=== PATIENT | male | born 1935 | race Caucasian/White ===

== ENCOUNTER → 2018-05-14 | Day surgery (SDC) | payer OTHER, MEDICARE ==
[~2018-05-14] MED LIST: CIPROFLOXACIN 55 ML OS; CLEOCIN HCL300 M1 PO; COUMADIN 3 MG TA3 MG PO; DOCUSATE SODIU100 MG PO; LISINOPRIL20 MG PO; NORVASC 5MG TAB5 MG PO; PRADAXA150 M1 PO; PRADAXA150 MG PO; PRAVACHOL10 MG PO; TYLENOL TAB 32325 MG PO; TYLENOL WITH C1 EACH PO; VOLTAREN 5 ML5 ML OS; ZOFRAN4 MG PO
--- NOTE | 2018-05-14 08:17 | Operative Report ---
Operative/Inv Procedure Report Surgery Date: 05/14/18 Name of Procedure: Right carpal tunnel release Pre-Operative Diagnosis: Right carpal tunnel syndrome Post-Operative Diagnosis: Same Estimated Blood Loss: none Surgeon/Metal Treater: Michael Mercedes MD Anesthesia: moderate sedation IV Fluids: See anesthesia record Implants: None Drains: None Specimens: None Tourniquet: 13 minutes Complications: None Condition: Stable Operative Indication: Patient is an 83-year-old male with documented carpal tunnel syndrome of the right wrist and hand. He failed conservative treatment with cortisone injections and was indicated for surgery. The risks and benefits were discussed with the patient in detail. Operative/Procedure Note Note: Once informed consent was obtained and the correct limb was identified the patient brought up room placed on table in supine position. After administration of sedation, local anesthesia was placed around the planned incision site with 0.5% plain Marcaine and 1% plain lidocaine. The right upper exam and had a tourniquet placed and was prepped and draped in the usual sterile fashion. To begin the procedure the tourniquet was inflated to 250 mmHg. Incision was made along the palm in line with the fourth ray radial border. Sharp dissection was carried out through the skin section as tissue. The deep palmar fascia was incised. A freer elevator was placed underneath the transverse carpal ligament and the transverse carpal ligament was incised sharply with a #15 blade with care to avoid nerves and tendons. The transection of the ligament was carried out proximally and distally. The colonoscope was irrigated with sterile saline and these skin was then closed with 3-0 nylon interrupted sutures. Sterile dressings applied and patient was awake and taken recovery in stable condition.
== END ==
LOC: STS 01:52
DX: G56.01 Carpal tunnel syndrome, right upper limb (principal); I10 Essential (primary) hypertension; I48.91 Unspecified atrial fibrillation; Z79.01 Long term (current) use of anticoagulants; M19.90 Unspecified osteoarthritis, unspecified site; I25.10 Atherosclerotic heart disease of native coronary artery without angina pectoris; R01.1 Cardiac murmur, unspecified
CPT/HCPCS: J0690; J2001; J2250; J3490